=== PATIENT | male | born 1990 | race Caucasian/White ===

== ENCOUNTER 2017-03-16 09:26 | Emergency (ER) | payer OTHER ==
[~2017-03-16] VITALS: Ht 162.6 cm; Wt 140.0 kg
[2017-03-16 09:29] VITALS: Ht 162.6 cm; Wt 140.0 kg
[2017-03-16 09:36] VITALS: PULSE 104
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
[2017-03-16] MEDS ORDERED: DIPHTH/TET/ACEL PERTUSS (ADULT) 0.5 ML VIAL IM* ONE (10:00)
== END 2017-03-16 10:08 | disposition home or self-care (01) ==
LOC: E/R 09:26
DX: F15.10 Other stimulant abuse, uncomplicated (principal); S60.511A Abrasion of right hand, initial encounter; S60.512A Abrasion of left hand, initial encounter; Y08.89XA Assault by other specified means, initial encounter; Z23 Encounter for immunization; Z02.89 Encounter for other administrative examinations
CPT/HCPCS: 90471; 90715